=== PATIENT | male | born 1985 | race Two or more races ===

== ENCOUNTER 2016-10-30 22:13 | Emergency (ER) | payer OTHER ==
[~2016-10-30] VITALS: Ht 170.2 cm; Wt 81.6 kg
[~2016-10-30 22:13] MED LIST: NKM; NORCO 5-325 TA1 EACH ORAL; PHENERGAN SUPP25 MG RECTAL; ZOFRAN4 M1 ORAL
[2016-10-30 22:38] VITALS: BP 142/99
--- NOTE | 2016-10-30 23:53 | Emergency Room Report ---
History of Present Illness General Chief Complaint: Laceration Source: Patient Present Illness HPI 31YOM walk-in with laceration to left ring finger Right handed Was sharpening knives at work for cooking Denies reduced extension Tetanus updated last year with laceration to left thumb Rinsed with water, peroxide at work Still bleeding Allergies: Coded Allergies: No Known Allergies (Unverified , 10/22/14) Patient History Past Medical History: none Past Surgical History: none Pertinent Family History: none Social History: Denies: smoking, alcohol use, drug use Immunizations: UTD Reviewed Nursing Documentation: PMH: Agreed, PSxH: Agreed Nursing Documentation-PMH Hx Cardiac Problems: No Hx Gastrointestinal Problems: Yes Review of Systems All Other Systems: negative except mentioned in HPI Physical Exam Vital Signs Date Time Temp Pulse Resp B/P (MAP) Pulse Ox O2 Delivery O2 Flow Rate FiO2 10/30/16 22:27 97.9 83 16 142/99 94 Room Air Sp02 EP Interpretation: reviewed, normal General Appearance: normal inspection, well appearing, no apparent distress, alert Head: atraumatic ENT: normal ENT inspection, hearing grossly normal, normal voice Neck: normal inspection, full range of motion, supple, no bony tend Respiratory: normal inspection, lungs clear, normal breath sounds, no respiratory distress, no retraction, no wheezing Cardiovascular #1: regular rate, rhythm, no edema Gastrointestinal: normal inspection, normal bowel sounds, non tender, soft, no guarding, no hernia Genitourinary: no CVA tenderness Musculoskeletal: normal inspection, back normal, normal range of motion, Victoria' s Sign negative, other - Left ring finger: 3cm linear laceration to dorsal aspect prox phalanx. No FB. Actively oozzing. Neurologic: normal inspection, alert, oriented x3, responsive, armature tester III-XII nml as tested, motor strength/tone normal, speech normal Psychiatric: normal inspection, judgement/insight normal, mood/affect normal Skin: normal inspection, normal color, no rash Procedures Laceration/Wound Repair Laceration/Wound Repair : Consent: Verbal Wound Location: upper extremity Wound's Depth, Shape: superficial Wound Explored: clean Betadine Prep?: Yes Anesthesia: Lidocaine w/ Epi Wound Debrided: minimal Wound Repaired With: sutures Suture Size/Type: 5:0 Number of Sutures: 4 Layer Closure?: No Sterile Dressing Applied?: Yes Splint Applied?: No Sling Applied?: No Patient Tolerated: Well Complications: None Medical Decision Making Diagnostic Impression: Primary Impression: Laceration ER Course Laceration repaired in ED Tetanus previously updated No tendon involvement No focal neuro deficits No FB Advised return in 7-10 days for suture removal DC home Last Vital Signs Date Time Temp Pulse Resp B/P (MAP) Pulse Ox O2 Delivery O2 Flow Rate FiO2 10/30/16 22:38 97.9 83 16 142/99 94 Room Air Status: improved Disposition: HOME, SELF-CARE Condition: Improved Referrals: NOT CHOSEN IPA/MD,REFERRING (PCP) Patient Instructions: Laceration Care, Adult Additional Instructions: - Keep laceration clean/dry for 24-36 hours. No significant bending/using finger until wednesday - Return in 7-10 days for suture removal GRACIELA BASS M.D. Oct 30, 2016 23:53
[2016-10-31 00:25] VITALS: BP 142/99
== END 2016-10-31 00:25 | disposition home or self-care (01) ==
LOC: EMR 22:46
DX: S61.215A Laceration without foreign body of left ring finger without damage to nail, initial encounter (principal); W26.0XXA Contact with knife, initial encounter; Y93.9 Activity, unspecified; Y99.0 Civilian activity done for income or pay
CPT/HCPCS: 99284

== ENCOUNTER 2016-11-09 14:22 | Emergency (ER) | payer OTHER ==
[~2016-11-09] VITALS: Ht 170.2 cm; Wt 81.6 kg
--- NOTE | 2016-11-09 14:44 | Emergency Room Report ---
History of Present Illness General Chief Complaint: Wound Recheck/Suture Removal Source: Patient Present Illness HPI 31-year-old male presents to the emergency department for suture removal from left ring finger laceration x2 weeks. Patient denies erythema, discharge, tenderness or increased temperature palpation. Patient denies fevers or chills. he states he's been applying Neosporin. Denies numbness tingling or loss of sensation or gross motor movements of the extremities, incontinence of bowel or bladder. Denies CP, Palpitations, LOC, AMS, dizziness, Changes in Vision, Sensation, paresthesias, or a sudden severe headache. Allergies: Coded Allergies: No Known Allergies (Unverified , 10/22/14) Patient History Past Medical History: see triage record Past Surgical History: none Pertinent Family History: none Immunizations: UTD Reviewed Nursing Documentation: PMH: Agreed, PSxH: Agreed Nursing Documentation-PMH Past Medical History: No History, Except For Hx Cardiac Problems: No Hx Gastrointestinal Problems: Yes Review of Systems All Other Systems: negative except mentioned in HPI Physical Exam Vital Signs Date Time Temp Pulse Resp B/P (MAP) Pulse Ox O2 Delivery O2 Flow Rate FiO2 11/09/16 14:33 98.4 82 18 98/50 98 Room Air Sp02 EP Interpretation: reviewed, normal General Appearance: no apparent distress, alert, GCS 15, non-toxic Head: normocephalic, atraumatic Eyes: bilateral eye normal inspection, bilateral eye PERRL ENT: hearing grossly normal, normal voice Neck: full range of motion Respiratory: lungs clear, normal breath sounds, speaking full sentences Cardiovascular #1: regular rate, rhythm, normal capillary refill Musculoskeletal: back normal, gait/station normal, normal range of motion, non- tender Neurologic: alert, oriented x3, responsive, motor strength/tone normal, sensory intact, speech normal Psychiatric: judgement/insight normal, memory normal, mood/affect normal Skin: normal color, no rash, warm/dry, well hydrated, wd healing/no infection noted - left dorsum of ring finger Lymphatic: no adenopathy Medical Decision Making PA Attestation Dr. Guadalupe is my supervising Physician whom patient management has been discussed with. Diagnostic Impression: Primary Impression: Encounter for removal of sutures ER Course 31-year-old male presents to the emergency department for suture removal from left ring finger laceration x2 weeks. Patient denies erythema, discharge, tenderness or increased temperature palpation. Patient denies fevers or chills. he states he's been applying Neosporin. Denies numbness tingling or loss of sensation or gross motor movements of the extremities, incontinence of bowel or bladder. Denies CP, Palpitations, LOC, AMS, dizziness, Changes in Vision, Sensation, paresthesias, or a sudden severe headache. Ddx considered but are not limited to laceration, tendon injury, cellulitis, dehiscence. Vital signs: are WNL, pt. is afebrile H&PE are most consistent with: healed laceration of the Left ring finger ORDERS: none required at this time, the diagnosis is clinical ED INTERVENTIONS: - 4 Sutures removed. - mild dehiscence in the middle of the laceration just over the knuckle, no pus, erythema noted, pt. tolerated well without complications. - Finger Splint applied to the left ring finger by software technical lead. Pt. remains neurovascularly intact. DISCHARGE: At this time pt. is stable for d/c to home. Will provide printed patient care instructions, and any necessary prescriptions. Care plan and follow up instructions have been discussed with the patient prior to discharge. Last Vital Signs Date Time Temp Pulse Resp B/P (MAP) Pulse Ox O2 Delivery O2 Flow Rate FiO2 11/09/16 14:33 98.4 82 18 98/50 98 Room Air Disposition: HOME, SELF-CARE Condition: Stable Patient Instructions: Suture Removal, Care After Additional Instructions: Take medications as directed. Follow up with a Primary Care Provider in 3-5 days, even if your symptoms have resolved. --Please review list of primary care clinics, if you do not already have a primary care provider Return sooner to ED if new symptoms occur, or current symptoms become worse. - Please note that this Emergency Department Report was dictated using [employer] balance wheel motion technology software, occasionally this can lead to erroneous entry secondary to interpretation by the dictation equipment. Alexa Infante Nov 09, 2016 14:44
[2016-11-09 15:23] VITALS: BP 135/76
== END 2016-11-09 15:23 | disposition home or self-care (01) ==
LOC: EMR 14:58
DX: S61.215D Laceration without foreign body of left ring finger without damage to nail, subsequent encounter (principal); W45.8XXD Other foreign body or object entering through skin, subsequent encounter; Z48.02 Encounter for removal of sutures
CPT/HCPCS: 99281